=== PATIENT | male | born 1960 | race Caucasian/White ===

== ENCOUNTER 2017-06-23 09:34 | Emergency (ER) | payer OTHER ==
[~2017-06-23] VITALS: Ht 175.3 cm; Wt 90.9 kg
[2017-06-23] MEDS: ketorolac trometh inj. 60 MG/2 ML VIAL IM ONE (10:56)
[2017-06-23] MEDS ORDERED: HYDR-565 PO (11:29)
[2017-06-23 11:46] VITALS: BP 131/88
== END 2017-06-23 11:53 | disposition home or self-care (01) ==
LOC: ER 09:34
DX: S62.626A Displaced fracture of middle phalanx of right little finger, initial encounter for closed fracture (principal); X58.XXXA Exposure to other specified factors, initial encounter; Y93.89 Activity, other specified; Y92.89 Other specified places as the place of occurrence of the external cause; Y99.8 Other external cause status
CPT/HCPCS: 29125; 73110; 73130; 96372; 99284; A6449; J1885